=== PATIENT | male | born 1950 | race Caucasian/White ===

== ENCOUNTER 2022-11-03 03:28 | Emergency (ER) | payer OTHER, MEDICARE ==
[2022-11-03] VITALS (10 sets, daily range): BP systolic 104–126; BP diastolic 38–65
[2022-11-03 03:45] LABS: BASO% 1.4 % (0-3); EOS% 0.8 % (0-8); HEMATOCRIT 37.8 % (39.0-50.0); HEMOGLOBIN 12.2 g/dl (14.0-18.0); LYMPH% 29.6 % (15-41); MEAN CELL VOLUME 94.5 fL CALC (80.0-100.0); MEAN CORPUSCULAR HGB 30.5 pG CALC (26.0-32.0); MEAN CORPUSCULAR HGB CONC 32.3 g/dL CAL (32.0-36.0); MONO% 13.8 % (2-13); NEUT# 1.97 thou/uL (1.82-7.42); NEUT% 54.4 % (42-76)
[2022-11-03] MEDS ORDERED: LEVOTHYROXIN50 MCG PO (03:54)
[2022-11-03] MEDS ORDERED: METFORMIN500 M2 PO (03:54)
[2022-11-03] MEDS ORDERED: PROTONIX40 M2 PO (03:54)
[2022-11-03] MEDS ORDERED: LINZESS145 MCG (03:55)
[2022-11-03] MEDS ORDERED: LISINOPRIL10 MG PO (03:55)
[2022-11-03] MEDS ORDERED: FUROSEMIDE20 MG PO (03:55)
[2022-11-03] MEDS ORDERED: TOPROL XL200 M1 PO (03:56)
[2022-11-03] MEDS ORDERED: ELIQUIS5 MG PO (03:57)
[2022-11-03] MEDS ORDERED: FOLIC ACID1 M1 (03:57)
[2022-11-03] MEDS ORDERED: TRAMADOL HCL50 MG PO (03:58)
[2022-11-03] MEDS ORDERED: MEMANTINE HYDROC5 MG (03:58)
[2022-11-03] MEDS ORDERED: DIVALPROEX SOD250 MG PO (03:58)
[2022-11-03] MEDS ORDERED: LIPITOR20 M1 PO (03:59)
[2022-11-03] MEDS ORDERED: DONEPEZIL10 MG PO (03:59)
[2022-11-03 04:00] LABS: ALKALINE PHOSPHATASE 74 u/l (38-126); ANION GAP 10 (6-22 (CALC)); BILIRUBIN, TOTAL 0.2 mg/dL (0.0-1.4); BUN 24 mg/dL (8-23); BUN/CREATININE RATIO 19 (12-20 (CALC)); CARBON DIOXIDE 30 mmol/l (22-30); CHLORIDE 106 mmol/l (95-108); CREATININE 1.3 mg/dL (0.7-1.3); GFR FOR AFR.AMER. > 60 ML/MIN (>=60 (CALC)); GFR OTHER RACES 55 ML/MIN (>=60 (CALC)); SGOT/AST 28 u/l (19-48); SODIUM 141 mmol/l (137-146)
[2022-11-03 04:02] LABS: ACT PARTIAL THROMBO TIME 28.9 SECONDS (20.0-32.5); INTERNATIONAL NORMALIZED RATIO 1.1 RATIO (0.7-1.3); PROTHROMBIN TIME 10.6 SECONDS (9.0-12.5)
[2022-11-03] MEDS ORDERED: TAM75CAP PO (04:50)
== END 2022-11-03 05:42 | disposition home or self-care (01) | DRG 195 ==
LOC: ED 03:28
PROVIDERS: Family Medicine
DX: J10.1 Influenza due to other identified influenza virus with other respiratory manifestations (principal); I10 Essential (primary) hypertension; F03.90 Unspecified dementia, unspecified severity, without behavioral disturbance, psychotic disturbance, mood disturbance, and anxiety; E03.9 Hypothyroidism, unspecified; Z95.0 Presence of cardiac pacemaker; Z20.822 Contact with and (suspected) exposure to COVID-19

== ENCOUNTER 2023-03-05 17:15 | Observation (INO) | payer OTHER, MEDICARE ==
[~2023-03-05] VITALS: Ht 180.3 cm; Wt 98.0 kg
[2023-03-05] VITALS (21 sets, daily range): BP systolic 101–137; BP diastolic 48–75
[~2023-03-05 17:15] MED LIST: DIVALPROEX SOD250 MG PO; DONEPEZIL10 MG PO; ELIQUIS5 MG PO; FOLIC ACID1 M1; FUROSEMIDE20 MG PO; LEVOTHYROXIN50 MCG PO; LINZESS145 MCG; LIPITOR20 M1 PO; LISINOPRIL10 MG PO; MEMANTINE HYDROC5 MG; METFORMIN500 M2 PO; PROTONIX40 M2 PO; TAM75CAP PO; TOPROL XL200 M1 PO; TRAMADOL HCL50 MG PO
--- NOTE | 2023-03-05 17:15 | NUR ---
PATIENT TO ED VIA EMS, AT SIDE, REPORT RECEIVED, PROVIDER NOTIFIED AND IN ROOM. PATIENT APPEARS CONFUSED, AWAKE, UNABLE TO FOLLOW COMMANDS, MOVING ALL EXTREMITIES. SPEECH SLURRED AND KEEPS REPEATING THE SAME PHRASE.
[2023-03-05 17:47] LABS: BASO% 0.6 % (0-3); EOS% 0.4 % (0-8); HEMATOCRIT 43.3 % (39.0-50.0); HEMOGLOBIN 13.6 g/dl (14.0-18.0); IMMATURE GRANULOCYTES 0.1 % (0.0-5.0); LYMPH% 19.2 % (15-41); MEAN CELL VOLUME 92.3 fL CALC (80.0-100.0); MEAN CORPUSCULAR HGB CONC 31.4 g/dL CAL (32.0-36.0); NEUT# 5.63 thou/uL (1.82-7.42); NEUT% 72.7 % (42-76); RED BLOOD COUNT 4.69 mill/uL (4.70-6.10); RED CELL DISTRI WIDTH 13.8 % (11.5-15.5)
[2023-03-05] MEDS ORDERED: BAYER ASPIRIN E81 MG PO (17:58)
[2023-03-05] MEDS ORDERED: COLACE100 MG PO (17:59)
[2023-03-05 18:01] LABS: ALBUMIN 4.2 g/dL (3.2-5.0); ALKALINE PHOSPHATASE 70 u/l (38-126); ANION GAP 15 (6-22 (CALC)); BUN 20 mg/dL (8-23); BUN/CREATININE RATIO 14 (12-20 (CALC)); CARBON DIOXIDE 29 mmol/l (22-30); CHLORIDE 105 mmol/l (95-108); CREATININE 1.4 mg/dL (0.7-1.3); GFR FOR AFR.AMER. > 60 ML/MIN (>=60 (CALC)); GFR OTHER RACES 50 ML/MIN (>=60 (CALC)); POTASSIUM 4.3 mmol/l (3.5-5.1); SGOT/AST 33 u/l (19-48); SODIUM 144 mmol/l (137-146); TOTAL PROTEIN 7.5 g/dL (6.3-8.2)
[2023-03-05] MEDS ORDERED: NITROSTAT0.4 MG SL (18:01)
[2023-03-05 18:02] LABS: BILIRUBIN, TOTAL 0.4 mg/dL (0.2-1.3)
[2023-03-05 18:08] LABS: PROTHROMBIN TIME 10.4 SECONDS (9.0-12.5)
--- NOTE | 2023-03-05 18:15 | NUR ---
STROKE ALERT CALLED AT 1720, TO CT AT 1751, CTA AQT 1807, RETURNED TO ROOM AT APPROX 1815, PATIENT INCONTINENT OR URINE WHILE IN CT AND ONCE RETURNED TO ROOM.
--- NOTE | 2023-03-05 19:08 | NUR ---
PATIENT CONTINUES TO BE INCONTIENENT OF URINE, REPORT GIVEN TO ONCOMING NURSE LAURA RICKETTS.
--- NOTE | 2023-03-05 20:00 | NUR ---
PT CONT TO BE CONFUSED, REPEATS "I DONT KNOW, I DONT KNOW," HARD TO GET HIM TO FOLLOW ANY COMMANDS BUT DOES FOLLOW SOME. SEE [facility]. VSS, NAD. LESLIE PLACED AND URINE COLLECTED. WILL CONT TO MONITOR UNTIL PT RECIEVED BED FOR ADMISSION.
[2023-03-05] MEDS ORDERED: MELATONIN3 M1 PO (20:24)
--- NOTE | 2023-03-05 21:00 | NUR ---
Reassessment of patient completed. No distress noted. Pt resting with eyes closed. vss. nad.
[2023-03-05 21:07] LABS: URINE BILIRUBIN - DIPSTICK NEGATIVE (NEGATIVE); URINE BLOOD DIPSTICK NEGATIVE (NEGATIVE); URINE COLOR YELLOW; URINE GLUCOSE - DIPSTICK NEGATIVE (NEGATIVE); URINE KETONE TRACE mg/dL (NEGATIVE); URINE LEUK ESTERASE NEGATIVE (NEGATIVE); URINE PH 7.5 (4.5-8.0); URINE PROTEIN - DIPSTICK NEGATIVE (NEG-TRACE)
[2023-03-05 21:08] LABS: URINE NITRITE - DIPSTICK NEGATIVE (Negative)
--- NOTE | 2023-03-05 22:00 | NUR ---
PT IS MORE ALERT BUT STILL DISORIENTED AND DOES NOT KNOW TIME, DATE, BIRTHDAY BUT CAN FOLLOW ALL COMMANDS, NO WEAKNESS. VSS. NAD.
[2023-03-06] VITALS (24 sets, daily range): BP systolic 90–125; BP diastolic 45–66
--- NOTE | 2023-03-06 01:13 | NUR ---
SLEEPING IN STABLE VS'S AND CONDITION. ORIENTED TO HIMSELF ON ADMITION. FOLLOWS ALL COMMANDS AND INSTRUCTION. FORGETFULL.
[2023-03-06 01:28] LABS: BASO% 0.7 % (0-3); EOS% 0.3 % (0-8); IMMATURE GRANULOCYTES 0.3 % (0.0-5.0); LYMPH% 24.6 % (15-41); MEAN CELL VOLUME 91.6 fL CALC (80.0-100.0); MEAN CORPUSCULAR HGB 28.9 pG CALC (26.0-32.0); MEAN CORPUSCULAR HGB CONC 31.6 g/dL CAL (32.0-36.0); NEUT# 4.82 thou/uL (1.82-7.42); NEUT% 66.1 % (42-76); RED BLOOD COUNT 3.94 mill/uL (4.70-6.10); RED CELL DISTRI WIDTH 14.1 % (11.5-15.5)
[2023-03-06 01:31] LABS: HEMATOCRIT 36.1 % (39.0-50.0); HEMOGLOBIN 11.4 g/dl (14.0-18.0)
[2023-03-06 01:37] LABS: ANION GAP 10 (6-22 (CALC)); BUN 17 mg/dL (8-23); BUN/CREATININE RATIO 17 (12-20 (CALC)); CARBON DIOXIDE 25 mmol/l (22-30); CHLORIDE 110 mmol/l (95-108); GFR FOR AFR.AMER. > 60 ML/MIN (>=60 (CALC)); GFR OTHER RACES > 60 ML/MIN (>=60 (CALC)); POTASSIUM 3.8 mmol/l (3.5-5.1); SODIUM 141 mmol/l (137-146)
--- NOTE | 2023-03-06 04:58 | NUR ---
PT SLEEPING COMFORTABLE AND NOT IN ANY DISTRESS. HEMODYNAMICALLY STABLE.
[2023-03-06] MEDS ORDERED: OMNICEF300 MG PO (09:02)
--- NOTE | 2023-03-06 09:42 | NUR ---
CASE MANAGEMENT SPOKE WITH PATIENTS , TRANSORTATION WILL BE PROVIDED FOR ATIENT DISCHARGE BY FAMILY MEMBER [facility] 4PM THIS AFTERNOON.
--- NOTE | 2023-03-06 17:17 | NUR ---
FAMILY ARRIVES TO TRANSPORT PATIENT HOME.
--- NOTE | 2023-03-06 17:43 | NUR ---
PATIENT DRESSED, AMBULATED TO WHEELCHAIR AND ESCORTED TO CAR WITH DAUGHTER AND GRAND DAUGHTER, NO C/O PAIN OR DISCOMFORT, NO S/S OF DISTRESS NOTED, AWAKE AND ALERT.
== END 2023-03-06 17:30 | disposition home or self-care (01) | DRG 72 ==
LOC: ED 17:15 → ED-I 21:17 → ED 21:29 → ICU 21:30
PROVIDERS: Family Medicine; ADMIT Internal Medicine; ATTEND Internal Medicine
PROC: 0T9B70Z Drainage of Bladder with Drainage Device, Via Natural or Artificial Opening (ICD-10-PCS; principal; 2023-03-05)
DX: G93.40 Encephalopathy, unspecified (principal); R50.9 Fever, unspecified; I10 Essential (primary) hypertension; E11.9 Type 2 diabetes mellitus without complications; I48.91 Unspecified atrial fibrillation; F03.90 Unspecified dementia, unspecified severity, without behavioral disturbance, psychotic disturbance, mood disturbance, and anxiety; E03.9 Hypothyroidism, unspecified; E78.5 Hyperlipidemia, unspecified; K21.9 Gastro-esophageal reflux disease without esophagitis; Z79.84 Long term (current) use of oral hypoglycemic drugs; Z79.01 Long term (current) use of anticoagulants; Z95.0 Presence of cardiac pacemaker; Z20.822 Contact with and (suspected) exposure to COVID-19
CPT/HCPCS: Q9967

== ENCOUNTER 2023-04-03 15:08 | Observation (INO) | payer OTHER, MEDICARE ==
[2023-04-03] VITALS (15 sets, daily range): BP systolic 85–135; BP diastolic 37–61
[~2023-04-03] VITALS: Ht 180.3 cm; Wt 108.7 kg
[~2023-04-03 15:08] MED LIST changes: +BAYER ASPIRIN E81 MG PO; +COLACE100 MG PO; +MELATONIN3 M1 PO; +NITROSTAT0.4 MG SL; +OMNICEF300 MG PO
[2023-04-03 15:41] LABS: BASO% 1.3 % (0-3); EOS% 0.8 % (0-8); HEMATOCRIT 43.5 % (39.0-50.0); IMMATURE GRANULOCYTES 0.5 % (0.0-5.0); LYMPH% 34.6 % (15-41); MEAN CORPUSCULAR HGB 28.6 pG CALC (26.0-32.0); MEAN CORPUSCULAR HGB CONC 32.2 g/dL CAL (32.0-36.0); MONO% 14.3 % (2-13); NEUT# 1.94 thou/uL (1.82-7.42); NEUT% 48.5 % (42-76); RED BLOOD COUNT 4.89 mill/uL (4.70-6.10); RED CELL DISTRI WIDTH 14.1 % (11.5-15.5)
[2023-04-03 15:54] LABS: ALBUMIN 4.4 g/dL (3.2-5.0); ALKALINE PHOSPHATASE 75 u/l (38-126); BUN 18 mg/dL (8-23); BUN/CREATININE RATIO 12 (12-20 (CALC)); CHLORIDE 100 mmol/l (95-108); CREATININE 1.5 mg/dL (0.7-1.3); GFR FOR AFR.AMER. 56 ML/MIN (>=60 (CALC)); GFR OTHER RACES 46 ML/MIN (>=60 (CALC)); POTASSIUM 4.5 mmol/l (3.5-5.1); SGOT/AST 55 u/l (19-48); SODIUM 139 mmol/l (137-146); TOTAL PROTEIN 7.7 g/dL (6.3-8.2)
[2023-04-03 15:55] LABS: ANION GAP 26 (6-22 (CALC)); BILIRUBIN, TOTAL 0.6 mg/dL (0.2-1.3); CARBON DIOXIDE 18 mmol/l (22-30)
[2023-04-03 17:31] LABS: URINE BILIRUBIN - DIPSTICK NEGATIVE (NEGATIVE); URINE BLOOD DIPSTICK NEGATIVE (NEGATIVE); URINE COLOR YELLOW; URINE GLUCOSE - DIPSTICK NEGATIVE (NEGATIVE); URINE KETONE TRACE mg/dL (NEGATIVE); URINE LEUK ESTERASE NEGATIVE (NEGATIVE); URINE PROTEIN - DIPSTICK NEGATIVE (NEG-TRACE); URINE SPECIFIC GRAVITY 1.015
[2023-04-03 17:33] LABS: URINE NITRITE - DIPSTICK NEGATIVE (Negative)
[2023-04-04 04:00] VITALS: BP 78/23
[2023-04-04 04:09] VITALS: BP 86/44
[2023-04-04 05:17] VITALS: BP 120/68
[2023-04-04 05:24] VITALS: BP 108/43
[2023-04-04 06:10] LABS: BASO% 1.6 % (0-3); HEMOGLOBIN 13.4 g/dl (14.0-18.0); LYMPH% 59.7 % (15-41); MEAN CELL VOLUME 89.4 fL CALC (80.0-100.0); MEAN CORPUSCULAR HGB 28.5 pG CALC (26.0-32.0); MEAN CORPUSCULAR HGB CONC 31.9 g/dL CAL (32.0-36.0); MONO% 14.1 % (2-13); NEUT# 0.66 thou/uL (1.82-7.42); NEUT% 21.6 % (42-76); RED BLOOD COUNT 4.7 mill/uL (4.70-6.10); RED CELL DISTRI WIDTH 14.3 % (11.5-15.5)
[2023-04-04 06:30] LABS: ALBUMIN 3.7 g/dL (3.2-5.0); ALKALINE PHOSPHATASE 73 u/l (38-126); BILIRUBIN, TOTAL 0.7 mg/dL (0.2-1.3); BUN 15 mg/dL (8-23); BUN/CREATININE RATIO 12 (12-20 (CALC)); CHLORIDE 105 mmol/l (95-108); CREATININE 1.2 mg/dL (0.7-1.3); GFR FOR AFR.AMER. > 60 ML/MIN (>=60 (CALC)); GFR OTHER RACES 60 ML/MIN (>=60 (CALC)); MAGNESIUM 2.2 mg/dL (1.6-2.3); POTASSIUM 4.1 mmol/l (3.5-5.1); SODIUM 141 mmol/l (137-146); TOTAL PROTEIN 6.4 g/dL (6.3-8.2)
[2023-04-04 07:22] LABS: ANION GAP 10 (6-22 (CALC)); CARBON DIOXIDE 30 mmol/l (22-30); SGOT/AST 140 u/l (19-48)
[2023-04-04 09:16] VITALS: BP 133/61
[2023-04-04] MEDS ORDERED: MIRALAX MIX-IN17 GM PO (10:13)
[2023-04-04] MEDS ORDERED: SENNA8.6 MG PO (10:13)
[2023-04-04 15:51] VITALS: BP 106/36
== END 2023-04-04 15:50 | disposition home or self-care (01) | DRG 389 ==
LOC: ED 15:08 → MS2 17:03
PROVIDERS: Family Medicine; ADMIT Internal Medicine; ATTEND Internal Medicine
DX: K56.41 Fecal impaction (principal); F03.C11 Unspecified dementia, severe, with agitation; N17.9 Acute kidney failure, unspecified; E86.0 Dehydration; I10 Essential (primary) hypertension; E11.9 Type 2 diabetes mellitus without complications; K21.9 Gastro-esophageal reflux disease without esophagitis; Z95.0 Presence of cardiac pacemaker; Z79.84 Long term (current) use of oral hypoglycemic drugs; Z20.822 Contact with and (suspected) exposure to COVID-19